=== PATIENT | male | born 1990 | race Caucasian/White ===

== ENCOUNTER → 2023-06-03 | Emergency (ER) | payer SELFPAY ==
[~2023-06-03] MED LIST: LORazepam 2 MG/ML VIAL ONE; NA CHLORIDE 0.9% 1,000 ML ONE; NA CHLORIDE 0.9% 1,000 ML with MULTIVITAMINS INJ 10 ML, THIAMINE HCL 100 MG, FOLIC ACID... IV SCH; THIAMINE 200 MG/2 ML INJ ONE; chlordiazePOXIDE HCl 25 MG CAP ONE
[2023-06-03 12:00] LABS: Specific Gravity 1.007 (1.005-1.030); Urine Bilirubin NEGATIVE (Negative); Urine Blood Negative (Negative); Urine Clarity Clear (Clear); Urine Color Colorless (Yellow); Urine Glucose NEGATIVE (Negative); Urine Protein NEGATIVE (Negative); Urine Urobilinogen Normal (Normal)
[2023-06-03 12:15] LABS: Barbiturates NEGATIVE (NEGATIVE); Benzodiazepines NEGATIVE (NEGATIVE); Cocaine NEGATIVE (NEGATIVE); METHAMPHETAM NEGATIVE (NEGATIVE); Methadone NEGATIVE (NEGATIVE); Opiates NEGATIVE (NEGATIVE); Phencyclidine NEGATIVE (NEGATIVE); THC Cannibis NEGATIVE (NEGATIVE)
[2023-06-03 12:22] LABS: Absolute Lymphocytes (CBC) 2.2 K/uL (0.7-4.9); Hematocrit 42.3 % (39.6-49.0); Lymphocytes % 32.7 % (15.3-44.8); MCV 87.8 fL (80-100); MPV 6.3 fL (7.6-11.3); Platelets 472 thou/uL (152-406); RBC Red Blood Cell Count 4.82 M/uL (4.33-5.43)
[2023-06-03 12:28] LABS: Protime INR 0.89
[2023-06-03 12:47] LABS: ALT/SGPT 50 U/L (16-61); AST/SGOT 52 U/L (15-37); Albumin 4.3 g/dL (3.4-5.0); Alkaline Phosphatase 57 U/L (45-117); BUN Blood Urea Nitrogen 6 mg/dL (7-18); Bicarbonate 23 mEq/L (21-32); Bilirubin Direct 0.3 mg/dL (0-0.2); Bilirubin Indirect, Calculated 0.6 mg/dL (0.2-0.8); Bilirubin Total 0.9 mg/dL (0.2-1.0); Glomerular Filtration Rate 112 ml/min (=/>90); Glucose Level 97 mg/dL (74-106); Potassium 3.6 mEq/L (3.5-5.1); Protein, Total 7.9 g/dL (6.4-8.2); Sodium Level 131 mEq/L (136-145)
--- NOTE | 2023-06-03 13:43 | EDPHYS ---
Physician Documentation [facility] Name: Arash Jasso Age: 33 yrs Sex: Male : 1990 Arrival Date: 06/03/2023 Time: 11:03 Bed 13 Private MD: ED Physician Alvin Millan HPI: 06/03 13:00 This 33 yrs old Male presents to ER via Ambulatory with complaints of Alcohol jessica Withdrawals. 13:00 The patient presents to the emergency department after a known overdose, a result of [facility] recreational substance abuse. Context: Method: the patient has a confirmed or suspected ingestion, of alcohol. Associated signs and symptoms: Pertinent positives: anxiety. Severity of symptoms: At their worst the symptoms were mild moderate in the emergency department the symptoms are unchanged. etoh withdrawal. Onset: The symptoms/episode began/occurred yesterday. The patient has experienced similar episodes in the past, multiple times. Historical: - Allergies: 11:14 No Known Allergies; iw - Home Meds: 11:14 gabapentin oral [Active]; iw - PMHx: 11:14 None; iw - PSHx: 11:14 right femur; iw - Immunization history:: Adult Immunizations up to date. - Social history:: Smoking status: Reported history of juuling and/or vaping. Patient uses alcohol, on a daily basis. patient/guardian reports recent binge of alcohol consumption. - Family history:: not pertinent. ROS: 13:00 Constitutional: Negative for fever, chills, and weight loss, Eyes: Negative for injury, jessica pain, redness, and discharge, ENT: Negative for injury, pain, and discharge, Neck: Negative for injury, pain, and swelling, Respiratory: Negative for shortness of breath, cough, wheezing, and pleuritic chest pain, Abdomen/GI: Negative for abdominal pain, nausea, vomiting, diarrhea, and constipation, Back: Negative for injury and pain, : Negative for injury, bleeding, discharge, and swelling, MS/Extremity: Negative for injury and deformity, Skin: Negative for injury, rash, and discoloration, Psych: Negative for depression, anxiety, suicide ideation, homicidal ideation, and hallucinations, Allergy/Immunology: Negative for hives, rash, and allergies, Endocrine: Negative for neck swelling, polydipsia, polyuria, polyphagia, and marked weight changes, Hematologic/Lymphatic: Negative for swollen nodes, abnormal bleeding, and unusual bruising, 13:00 Cardiovascular: Positive for palpitations, 13:00 Psych: Positive for anxiety, Exam: 13:04 Constitutional: This is a well developed, well nourished patient who is awake, alert, jessica and in no acute distress. Head/Face: Normocephalic, atraumatic. Eyes: Pupils equal round and reactive to light, extra-ocular motions intact. Lids and lashes normal. Conjunctiva and sclera are non-icteric and not injected. Cornea within normal limits. Periorbital areas with no swelling, redness, or edema. ENT: Nares patent. No nasal discharge, no septal abnormalities noted. Tympanic membranes are normal and external auditory canals are clear. Oropharynx with no redness, swelling, or masses, exudates, or evidence of obstruction, uvula midline. Mucous membranes moist. Neck: Trachea midline, no thyromegaly or masses palpated, and no cervical lymphadenopathy. Supple, full range of motion without nuchal rigidity, or vertebral point tenderness. No Meningismus. Chest/axilla: Normal chest wall appearance and motion. Nontender with no deformity. No lesions are appreciated. Respiratory: Lungs have equal breath sounds bilaterally, clear to auscultation and percussion. No rales, rhonchi or wheezes noted. No increased work of breathing, no retractions or nasal flaring. Abdomen/GI: Soft, non-tender, with normal bowel sounds. No distension or tympany. No guarding or rebound. No evidence of tenderness throughout. Back: No spinal tenderness. No costovertebral tenderness. Full range of motion. Male : Normal genitalia with no discharge or lesions. Skin: Warm, dry with normal turgor. Normal color with no rashes, no lesions, and no evidence of cellulitis. MS/ Extremity: Pulses equal, no cyanosis. Neurovascular intact. Full, normal range of motion. Neuro: Awake and alert, GCS 15, oriented to person, place, time, and situation. Cranial nerves II-XII grossly intact. Motor strength 5/5 in all extremities. Sensory grossly intact. Cerebellar exam normal. Normal gait. Psych: Awake, alert, with orientation to person, place and time. Behavior, mood, and affect are within normal limits. 13:04 Cardiovascular: Rate: tachycardic, actual rate is 108 bpm, Rhythm: regular, Pulses: Pulses are 4+ in bilateral radial, brachial, femoral, popliteal, posterior tibial and and dorsalis pedis arteries.. Heart sounds: normal, Edema: is not appreciated, JVD: is not appreciated, 13:29 ECG was reviewed by the Attending Physician. [facility] Vital Signs: 11:12 BP 140 / 97; Pulse 108; Resp 19; Temp 98.1; Pulse Ox 97% on R/A; Weight 68.04 kg; iw Height 5 ft. 9 in. ; 13:30 BP 114 / 77; Pulse 99; Resp 18; Temp 98(O); Pulse Ox 99% ; rs5 14:01 BP 118 / 79; Pulse 88; Resp 18; Pulse Ox 99% on R/A; rs5 11:12 Body Mass Index 22.15 (68.04 kg, 175.26 cm) iw MDM: 11:07 Patient medically screened. jessica 13:06 Differential diagnosis: polypharmacy. Differential Diagnosis altered mental status. [facility] Data reviewed: vital signs, nurses notes, lab test result(s), EKG. Consideration of Admission/Observation Escalation of care including admission/observation considered. I considered the following discharge prescriptions or medication management in the emergency department Medications were administered in the Emergency Department. See MAR. Independent interpretation of the following test(s) in the Emergency Department EKG: See my EKG interpretation above. Test considered but Not performed: CT: no ct head. Historians other than the Patient: pt well informed. Care significantly affected by the following chronic conditions:. Counseling: I had a detailed discussion with the patient and/or guardian regarding the historical points, exam findings, and any diagnostic results supporting the discharge/admit diagnosis, the presence of at least one elevated blood pressure reading (>120/80) during this emergency department visit, lab results, radiology results, the need for outpatient follow up, for definitive care, a family practitioner, a psychiatrist. 06/03 11:08 Order name: Acetaminophen; Complete Time: 13:41 [facility] 06/03 11:08 Order name: Basic Metabolic Panel; Complete Time: 13:41 [facility] 06/03 11:08 Order name: CBC with Diff; Complete Time: 13:41 [facility] 06/03 11:08 Order name: ETOH Level; Complete Time: 13:41 [facility] 06/03 11:08 Order name: Hepatic Function; Complete Time: 13:41 [facility] 06/03 11:08 Order name: PT-INR; Complete Time: 13:41 [facility] 06/03 11:08 Order name: Ptt, Activated; Complete Time: : [facility] 06/03 11:08 Order name: Salicylate; Complete Time: 13:41 [facility] 06/03 11:08 Order name: Urinalysis w/ reflexes; Complete Time: 13:41 [facility] 06/03 11:08 Order name: Urine Drug Screen; Complete Time: 13: [facility] 06/03 11:08 Order name: EKG; Complete Time: 11: [facility] 06/03 11:08 Order name: EKG - Nurse/Tech; Complete Time: 13:29 [facility] 06/03 11:08 Order name: IV Saline Lock; Complete Time: 12:40 [facility] 06/03 11:08 Order name: Labs collected and sent; Complete Time: 12:40 [facility] 06/03 11:08 Order name: Suicide Screening ([place]); Complete Time: 12:40 [facility] EC:29 Rate is 86 beats/min. Rhythm is regular. QRS [place] is Normal. [place] interval is normal. QRS jessica interval is normal. QT interval is normal. No Q waves. T waves are Normal. No ST changes noted. Clinical impression: Normal ECG and No evidence of ischemia. Interpreted by me. Reviewed by me. Administered Medications: 12:40 Drug: NS 0.9% IV 1000 ml IV at 1 bolus Per protocol; 1000 mL bolus Route: IV; Rate: 1 rs5 bolus; Site: right antecubital; 13:01 Follow up: Response: No adverse reaction rs5 12:40 Drug: Thiamine IV 100 mg IV at bolus once Route: IV; Rate: bolus; Site: right rs5 antecubital; 13:01 Follow up: Response: No adverse reaction rs5 12:45 Drug: Banana Bag - (Multivitamin IV 1 amp, NS 0.9% IV 1000 ml, Thiamine IV 100 mg, rs5 foLIC Acid IVPB 1 mg) IV at 500 ml/hr once Route: IV; Rate: 500 ml/hr; Site: right antecubital; 13:01 Follow up: Response: No adverse reaction rs5 12:45 Drug: Librium - chlordiazePOXIDE PO 50 mg PO once Route: PO; rs5 13:01 Follow up: Response: No adverse reaction rs5 12:45 Drug: Ativan IVP 1 mg IVP once Route: IVP; Site: right antecubital; rs5 13:01 Follow up: Response: No adverse reaction rs5 Disposition Summary: 06/03/23 13:42 Discharge Ordered Notes: Location: Home [facility] Problem: new jessica Symptoms: have improved jessica Condition: Stable jessica Diagnosis - Alcohol dependence jessica - Alcohol dependence with withdrawal, uncomplicated jessica - Alcohol abuse with intoxication jessica Followup: jessica - With: Private Physician - When: 2 - 3 days - Reason: Recheck today's complaints, Continuance of care, Re-evaluation by your physician Followup: jessica - With: Suhas Arellano MD - When: 2 - 3 days - Reason: Recheck today's complaints, Re-evaluation by your physician Discharge Instructions: - Discharge Summary Sheet [facility] - Finding Treatment for Addiction jessica - Alcohol Intoxication jessica - Alcohol Use Disorder jessica - Alcohol Intoxication, Thac-ox-Tfgs jessica - Alcohol Withdrawal Syndrome, [id number] [facility] - Alcohol Abuse and Dependence Information, Adult [facility] Forms: - Medication Reconciliation Form [facility] - Thank You Letter [facility] - Antibiotic Education [facility] - Prescription Opioid Use [facility] - Patient Portal Instructions [facility] - Leadership Thank You Letter [facility] Prescriptions: - ondansetron 4 mg Oral Tablet,disintegrating - take 1 tablet ORAL route every 6-8 hours for 5 days; 20 tablet; Refills: 0, jessica Product Selection Permitted Signatures: Dispatcher [employer] Alvin Platt MD MD cha Williams, Irene, RN RN iw Abiel Rubio RN RN rs5
--- NOTE | 2023-06-03 13:43 | ER ---
Nurse's Notes [facility] Name: Arash Jasso Age: 33 yrs Sex: Male : 1990 Arrival Date: 06/03/2023 Time: 11:03 Bed 13 Private MD: Diagnosis: Alcohol dependence;Alcohol dependence with withdrawal, uncomplicated;Alcohol abuse with intoxication Presentation: 06/03 11:12 Chief complaint: Patient states: last drink was at 7 am today, normally drinks 24 beers iw a day, is trying to taper himself off but was unsuccessful , he's had seizures before. Coronavirus screen: At this time, the client does not indicate any symptoms associated with coronavirus-19. Ebola Screen: Patient negative for fever greater than or equal to 101.5 degrees Fahrenheit, and additional compatible Ebola Virus Disease symptoms Patient denies exposure to infectious person. Patient denies travel to an Ebola-affected area in the 21 days before illness onset. No symptoms or risks identified at this time. Initial Sepsis Screen: Does the patient meet any 2 criteria? No. Patient's initial sepsis screen is negative. Does the patient have a suspected source of infection? No. Patient's initial sepsis screen is negative. Risk Assessment: Do you want to hurt yourself or someone else? Patient reports no desire to harm self or others. Onset of symptoms was June 03, 2023. 11:12 Method Of Arrival: Ambulatory iw 11:12 Acuity: DALE 3 iw Historical: - Allergies: 11:14 No Known Allergies; iw - Home Meds: 11:14 gabapentin oral [Active]; iw - PMHx: 11:14 None; iw - PSHx: 11:14 right femur; iw - Immunization history:: Adult Immunizations up to date. - Social history:: Smoking status: Reported history of juuling and/or vaping. Patient uses alcohol, on a daily basis. patient/guardian reports recent binge of alcohol consumption. - Family history:: not pertinent. Screenin:20 [facility] ED Fall Risk Assessment (Adult) History of falling in the last 3 months, rs5 including since admission No falls in past 3 months (0 pts) Confusion or Disorientation No (0 pts) Intoxicated or Sedated No (0 pts) Impaired Gait No (0 pts) Mobility Assist Device Used No (0 pt) Altered Elimination No (0 pt) Score/Fall Risk Level 0 - 2 = Low Risk Oriented to surroundings, Maintained a safe environment. 11:20 Abuse screen: Denies threats or abuse. Nutritional screening: No deficits noted. rs5 Tuberculosis screening: No symptoms or risk factors identified. Assessment: 12:35 Reassessment: pt arrived to room. rs5 12:35 General: Appears in no apparent distress. uncomfortable, Behavior is cooperative, rs5 anxious. Pain: Denies pain. Neuro: Level of Consciousness is awake, alert, obeys commands, Oriented to person, place, time, situation, Flap Curer are equal bilaterally Moves all extremities. Speech is normal, Reports states "I feel anxious and jittery" provider notified. 12:35 Cardiovascular: Patient's skin is warm and dry. Rhythm is regular. Respiratory: Airway rs5 is patent Respiratory effort is even, unlabored, Respiratory pattern is regular, symmetrical. GI: Abdomen is round non-distended, Abd is soft and non tender X 4 quads. : No signs and/or symptoms were reported regarding the genitourinary system. EENT: No signs and/or symptoms were reported regarding the EENT system. Derm: Skin is intact, Skin is pink, warm \\T\\ dry. Musculoskeletal: Range of motion: intact in all extremities. 13:47 Reassessment: Patient and/or family updated on plan of care and expected duration. Pain rs5 level reassessed. Patient is alert, oriented x 3, equal unlabored respirations, skin warm/dry/pink. Patient states feeling better. Patient states symptoms have improved. 14:15 Reassessment: Waiting for banana bag to finish before discharge per MD orders . rs5 Vital Signs: 11:12 BP 140 / 97; Pulse 108; Resp 19; Temp 98.1; Pulse Ox 97% on R/A; Weight 68.04 kg; iw Height 5 ft. 9 in. ; 13:30 BP 114 / 77; Pulse 99; Resp 18; Temp 98(O); Pulse Ox 99% ; rs5 14:01 BP 118 / 79; Pulse 88; Resp 18; Pulse Ox 99% on R/A; rs5 11:12 Body Mass Index 22.15 (68.04 kg, 175.26 cm) iw ED Course: 11:06 Patient arrived in ED. mr 11:07 Alvin Millan MD is Attending Physician. jessica 11:14 Triage completed. iw 11:15 Arm band placed on. iw 11:20 Patient has correct armband on for positive identification. Bed in low position. Call rs5 light in reach. Side rails up X2. 11:20 No provider procedures requiring assistance completed. rs5 12:16 Inserted saline lock: 22 gauge in right forearm, using aseptic technique. Blood iw collected. 12:31 Abiel Rubio, MAGO is Primary Nurse. rs5 13:42 Suhas Arellano MD is Referral Physician. jessica 14:30 IV discontinued, intact, bleeding controlled, No redness/swelling at site. Pressure rs5 dressing applied. Administered Medications: 12:40 Drug: NS 0.9% IV 1000 ml IV at 1 bolus Per protocol; 1000 mL bolus Route: IV; Rate: 1 rs5 bolus; Site: right antecubital; 13:01 Follow up: Response: No adverse reaction rs5 12:40 Drug: Thiamine IV 100 mg IV at bolus once Route: IV; Rate: bolus; Site: right rs5 antecubital; 13:01 Follow up: Response: No adverse reaction rs5 12:45 Drug: Banana Bag - (Multivitamin IV 1 amp, NS 0.9% IV 1000 ml, Thiamine IV 100 mg, rs5 foLIC Acid IVPB 1 mg) IV at 500 ml/hr once Route: IV; Rate: 500 ml/hr; Site: right antecubital; 13:01 Follow up: Response: No adverse reaction rs5 12:45 Drug: Librium - chlordiazePOXIDE PO 50 mg PO once Route: PO; rs5 13:01 Follow up: Response: No adverse reaction rs5 12:45 Drug: Ativan IVP 1 mg IVP once Route: IVP; Site: right antecubital; rs5 13:01 Follow up: Response: No adverse reaction rs5 Medication: 14:00 VIS not applicable for this client. rs5 Outcome: 13:42 Discharge ordered by . jessica 14:30 Discharged to home ambulatory, rs5 14:30 Condition: stable 14:30 Discharge instructions given to patient, Instructed on discharge instructions, follow up and referral plans. medication usage, Demonstrated understanding of instructions, follow-up care, medications, 14:36 Patient left the ED. rs5 Signatures: Alvin Millan MD MD cha Rivera, Mary, Reg Reg mr Sandy Woo, RN RN iw Abiel Rubio, RN RN rs5
[2023-06-03 14:45] VITALS: BP 114/77; TEMP 98; O2SAT 99
--- NOTE | 2023-06-04 15:02 | EKG ---
Test Date: 2023-06-03 Test Time: 13:20:26 [employer] Supervisor: REBA MEASUREMENT RESULTS: Intervals: Rate: 86 CO: 146 QRSD: 100 QT: 382 QTc: 457 [place]: P: 68 CO: 146 QRS: 61 T: 54 INTERPRETIVE STATEMENTS: Normal sinus rhythm Normal ECG No previous ECG available for comparison Electronically Signed On 06-04-23 15:00:19 TIN ROOFER by Francisco Javier Méndez
== END ==
LOC: ER 11:03
DX: F10.239 Alcohol dependence with withdrawal, unspecified (principal); F10.229 Alcohol dependence with intoxication, unspecified
CPT/HCPCS: 36415; 80048; 80076; 80143; 80179; 80307; 81003; 82077; 85025; 85610; 85730; 93005; 96374; 96375; 99284; J3411; J7030

== ENCOUNTER 2023-12-19 15:12 | Emergency (ER) | payer SELFPAY ==
--- NOTE | 2023-12-19 16:42 | ER ---
Nurse's Notes [facility] Name: Arash Jasso Age: 33 yrs Sex: Male : 1990 Arrival Date: 12/19/2023 Time: 15:12 Bed 5 Private MD: Diagnosis: Alcohol withdrawal Presentation: 12/18 15:49 Chief complaint: Patient states: he typically drinks 15 beers/day and his last drink ap3 was this morning. patient is reporting nausea and feeling "shaky". patient reports having 2 beers this morning. Coronavirus screen: At this time, the client does not indicate any symptoms associated with coronavirus-19. Ebola Screen: No symptoms or risks identified at this time. Initial Sepsis Screen: Does the patient meet any 2 criteria? No. Patient's initial sepsis screen is negative. Does the patient have a suspected source of infection? No. Patient's initial sepsis screen is negative. Risk Assessment: Do you want to hurt yourself or someone else? Patient reports no desire to harm self or others. Onset of symptoms is unknown. 15:49 Method Of Arrival: Ambulatory ap3 15:49 Acuity: DALE 2 ap3 Triage Assessment: 15:52 General: Appears uncomfortable, Behavior is cooperative. Pain: Denies pain. Neuro: ap3 Level of Consciousness is awake, alert, obeys commands, Oriented to person, place, time, situation, Appropriate for age. Cardiovascular: Patient's skin is warm and dry. Respiratory: Airway is patent Respiratory effort is even, unlabored, Respiratory pattern is regular, symmetrical. GI: Reports nausea, vomiting. Historical: - Allergies: 15:51 No Known Allergies; ap3 - PMHx: 16:06 Alcoholism; ld1 - PSHx: 15:51 Right femur; ap3 - Immunization history:: Client reports receiving the 2nd dose of the Covid vaccine. - Infectious Disease History:: Denies. - Social history:: Smoking status: Reported history of juuling and/or vaping. Patient uses alcohol, on a daily basis. Screenin:52 Abuse screen: Denies threats or abuse. Nutritional screening: No deficits noted. ap3 Tuberculosis screening: No symptoms or risk factors identified. 16:04 Clinical [place] Withdrawal Assessment for Alcohol, revised (CIWA-Ar): ld1 Nausea/Vomitin - No nausea or vomiting Headache: 0 - Not present Paroxysmal Sweats: 1 - Barely perceptible sweating, palms moist Anxiety: 4 - Moderately anxious, guarded Agitation: 0 - Normal actiivty Tremor: 4 - Moderate when client's hands extended Auditory Disturbances: 0 - Not present Visual Disturbances: 0 - Not present Tactile Disturbances: 0 - None Orientation and Clouding of Sensorium: 0 - Oriented and can do serial additions Total Score: < 10 Very mild withdrawal. [facility] ED Fall Risk Assessment (Adult) History of falling in the last 3 months, including since admission No falls in past 3 months (0 pts) Confusion or Disorientation No (0 pts) Intoxicated or Sedated No (0 pts) Impaired Gait No (0 pts) Mobility Assist Device Used No (0 pt) Altered Elimination No (0 pt) Score/Fall Risk Level 0 - 2 = Low Risk Oriented to surroundings, Maintained a safe environment, Educated pt \\T\\ family on fall prevention, incl call for assistance when getting out of bed, Assessed \\T\\ reinforced patient's understanding of fall precautions, Provided non-skid footwear, Hourly rounding (assess needs \\T\\ fall precautionary measures) done, Used ambulatory aids as needed (educated on \\T\\ assisted with), Used gait belt as appropriate. Assessment: 16:05 General: Appears in no apparent distress. comfortable, Behavior is cooperative, ld1 appropriate for age, anxious. Pain: Denies pain. Neuro: Level of Consciousness is awake, alert, obeys commands, Oriented to person, place, time, situation, Appropriate for age. Cardiovascular: Capillary refill < 3 seconds Patient's skin is warm and dry. Rhythm is sinus rhythm. Respiratory: Airway is patent Respiratory effort is even, unlabored. GI: Abdomen is flat, non-distended. : No signs and/or symptoms were reported regarding the genitourinary system. EENT: No signs and/or symptoms were reported regarding the EENT system. Derm: Reports night sweats. Musculoskeletal: No signs and/or symptoms reported regarding the musculoskeletal system. 16:50 Reassessment: D/C pending medication administration. mb9 17:50 Reassessment: Patient and/or family updated on plan of care and expected duration. Pain mb9 level reassessed. Patient is alert, oriented x 3, equal unlabored respirations, skin warm/dry/pink. Patient states feeling better. Patient states symptoms have improved. Vital Signs: 15:49 BP 120 / 93; Pulse 97; Resp 19; Temp 98.2(O); Pulse Ox 96% on R/A; Weight 68.04 kg; ap3 Height 5 ft. 8 in. ; 16:06 Pulse 86; Resp 22; Pulse Ox 95% on R/A; Pain 0/10; ld1 16:08 BP 118 / 89; ld1 17:50 BP 131 / 92; Pulse 95; Resp 18; Pulse Ox 100% on R/A; mb9 15:49 Body Mass Index 22.81 (68.04 kg, 172.72 cm) ap3 16:06 Pain Scale: Adult ld1 ED Course: 15:16 Patient arrived in ED. im 15:32 Shruthi Crouch MD is Attending Physician. sp3 15:51 Triage completed. ap3 15:53 Arm band placed on right wrist. ap3 15:57 Patient has correct armband on for positive identification. Placed in gown. Bed in low ap3 position. Call light in reach. Side rails up X 1. Client placed on continuous cardiac and pulse oximetry monitoring. NIBP monitoring applied. media monitor on. Pulse ox on. NIBP on. 16:00 Missed attempt(s): 20 gauge in right antecubital area. Bleeding controlled, band aid mb9 applied, catheter tip intact. 16:00 EKG done, by ED staff, reviewed by Shruthi Crouch MD. mb9 16:05 Pat Vera, RN is Primary Nurse. ld1 16:06 Provided Education on: Drinking cessation . Door closed. Noise minimized. Warm blanket ld1 given. 16:06 Initial lab(s) drawn, by pa, sent to lab. Inserted saline lock: 18 gauge in left mb9 forearm, using aseptic technique. Blood collected. Flushed with 10 mL NS. 16:06 No provider procedures requiring assistance completed. ld1 17:51 IV discontinued, intact, bleeding controlled, No redness/swelling at site. Pressure mb9 dressing applied. Administered Medications: 16:50 Drug: Ativan IVP 2 mg IVP once Route: IVP; Site: left forearm; mb9 17:50 Follow up: Response: No adverse reaction mb9 16:50 Drug: NS 0.9% IV 500 ml IV at bolus once Route: IV; Rate: bolus; Site: left forearm; mb9 17:51 Follow up: Response: No adverse reaction; IV Status: Completed infusion mb9 16:50 Drug: cloNIDine PO 0.1 mg PO once Route: PO; mb9 17:51 Follow up: Response: No adverse reaction mb9 Medication: 16:06 VIS not applicable for this client. ld1 Outcome: 16:42 Discharge ordered by . sp3 17:51 Discharged to home ambulatory, mb9 17:51 Condition: stable 17:51 Discharge instructions given to patient, Instructed on discharge instructions, follow up and referral plans. Demonstrated understanding of instructions, follow-up care, medications, Prescriptions given X 1, 17:51 Patient left the ED. mb9 Signatures: Amy Arceo RN RN andrea3 Pat Vera RN RN ld1 Shruthi Crouch MD MD sp3 Soco Rick RN RN mb9 Micheline Zamora
--- NOTE | 2023-12-19 16:42 | EDPHYS ---
Physician Documentation [facility] Name: Arash Jasso Age: 33 yrs Sex: Male : 1990 Arrival Date: 12/19/2023 Time: 15:12 Bed 5 Private MD: ED Physician Shruthi Crouch HPI: 12/18 16:38 This 33 yrs old Male presents to ER via Ambulatory with complaints of Alcohol sp3 Withdrawal. 16:38 33-year-old male with history of alcoholism presents with alcohol withdrawal symptoms. sp3 Last drink was this morning. He denies any other drug use or any other symptoms. He denies headache, seizures, chest pain, shortness of breath, abdominal pain, vomiting, diarrhea. He does state he has the shakes. Has been to rehab twice and states that he wishes to go back at some point soon.. Historical: - Allergies: 15:51 No Known Allergies; ap3 - PMHx: 16:06 Alcoholism; ld1 - PSHx: 15:51 Right femur; ap3 - Immunization history:: Client reports receiving the 2nd dose of the Covid vaccine. - Infectious Disease History:: Denies. - Social history:: Smoking status: Reported history of juuling and/or vaping. Patient uses alcohol, on a daily basis. ROS: 16:39 Constitutional: Negative for fever, chills, and weight loss, Eyes: Negative for injury, sp3 pain, redness, and discharge, Neck: Negative for injury, pain, and swelling, Cardiovascular: Negative for chest pain, palpitations, and edema, Respiratory: Negative for shortness of breath, cough, wheezing, and pleuritic chest pain, Abdomen/GI: Negative for abdominal pain, nausea, vomiting, diarrhea, and constipation, Back: Negative for injury and pain, MS/Extremity: Negative for injury and deformity, Skin: Negative for injury, rash, and discoloration, Allergy/Immunology: Negative for hives, rash, and allergies, Endocrine: Negative for neck swelling, polydipsia, polyuria, polyphagia, and marked weight changes, Hematologic/Lymphatic: Negative for swollen nodes, abnormal bleeding, and unusual bruising, 16:39 All other systems are negative, Exam: 16:40 ECG was reviewed by the Attending Physician. EKG demonstrates normal sinus rhythm at 93 sp3 bpm with normal intervals, normal QRS, normal axis, normal axis ST segments without evidence of acute ischemia. 16:40 Constitutional: This is a well developed, well nourished patient who is awake, alert, sp3 and in no acute distress. Head/Face: Normocephalic, atraumatic. Eyes: Pupils equal round and reactive to light, extra-ocular motions intact. Lids and lashes normal. Conjunctiva and sclera are non-icteric and not injected. Cornea within normal limits. Periorbital areas with no swelling, redness, or edema. ENT: Nares patent. No nasal discharge, no septal abnormalities noted. External auditory canals are clear. Oropharynx with no redness, swelling, or masses, exudates, or evidence of obstruction, uvula midline. Mucous membranes moist. Neck: Trachea midline, no thyromegaly or masses palpated, and no cervical lymphadenopathy. Supple, full range of motion without nuchal rigidity, or vertebral point tenderness. No Meningismus. Chest/axilla: Normal chest wall appearance and motion. Nontender with no deformity. No lesions are appreciated. Cardiovascular: Regular rate and rhythm with a normal S1 and S2. No gallops, murmurs, or rubs. Normal PMI, no JVD. No pulse deficits. Respiratory: Lungs have equal breath sounds bilaterally, clear to auscultation and percussion. No rales, rhonchi or wheezes noted. No increased work of breathing, no retractions or nasal flaring. Abdomen/GI: Soft, non-tender, with normal bowel sounds. No distension or tympany. No guarding or rebound. No evidence of tenderness throughout. Back: No spinal tenderness. No costovertebral tenderness. Full range of motion. Skin: Warm, dry with normal turgor. Normal color with no rashes, no lesions, and no evidence of cellulitis. MS/ Extremity: Pulses equal, no cyanosis. Neurovascular intact. Full, normal range of motion. Neuro: Awake and alert, GCS 15, oriented to person, place, time, and situation. Cranial nerves II-XII grossly intact. Motor strength 5/5 in all extremities. Sensory grossly intact. Cerebellar exam normal. Normal gait. Psych: Awake, alert, with orientation to person, place and time. Behavior, mood, and affect are within normal limits. Vital Signs: 15:49 BP 120 / 93; Pulse 97; Resp 19; Temp 98.2(O); Pulse Ox 96% on R/A; Weight 68.04 kg; ap3 Height 5 ft. 8 in. ; 16:06 Pulse 86; Resp 22; Pulse Ox 95% on R/A; Pain 0/10; ld1 16:08 BP 118 / 89; ld1 17:50 BP 131 / 92; Pulse 95; Resp 18; Pulse Ox 100% on R/A; mb9 15:49 Body Mass Index 22.81 (68.04 kg, 172.72 cm) ap3 16:06 Pain Scale: Adult ld1 MDM: 15:58 Patient medically screened. sp3 16:41 Data reviewed: vital signs, nurses notes, EKG. ED course: No overt signs of alcohol sp3 withdrawal noted except mild shakes. Will give Ativan 2 mg IV and clonidine 0.1 mg p.o. Discharged on clonidine and follow-up with rehab and/or PCP as needed.. Administered Medications: 16:50 Drug: Ativan IVP 2 mg IVP once Route: IVP; Site: left forearm; mb9 17:50 Follow up: Response: No adverse reaction mb9 16:50 Drug: NS 0.9% IV 500 ml IV at bolus once Route: IV; Rate: bolus; Site: left forearm; mb9 17:51 Follow up: Response: No adverse reaction; IV Status: Completed infusion mb9 16:50 Drug: cloNIDine PO 0.1 mg PO once Route: PO; mb9 17:51 Follow up: Response: No adverse reaction mb9 Disposition Summary: 12/19/23 16:42 Discharge Ordered Notes: Location: Home sp3 Condition: Stable sp3 Diagnosis - Alcohol withdrawal sp3 Followup: sp3 - With: Private Physician - When: Upon discharge from the Emergency Department - Reason: Continuance of care Discharge Instructions: - Discharge Summary Sheet sp3 - Alcohol Withdrawal Syndrome sp3 Forms: - Medication Reconciliation Form sp3 - Antibiotic Education sp3 - Prescription Opioid Use sp3 - Patient Portal Instructions sp3 - Leadership Thank You Letter sp3 Prescriptions: - clonidine HCl 0.2 mg Oral tablet - take 1 tablet ORAL route every 4 hours for 24 hours as needed for alcohol sp3 withdrawal; 10 tablet; Refills: 0, Product Selection Permitted Signatures: Amy Arceo RN RN ap3 Pat Vera RN RN ld1 Shruthi Crouch MD MD sp3 Prabhjot, Soco Roldan, RN RN mb9
[2023-12-19] MEDS ORDERED: cloNIDine HCL 0.1 MG TAB ONE (16:45)
[2023-12-19] MEDS ORDERED: LORazepam 2 MG/ML VIAL ONE (16:45)
[2023-12-19] MEDS ORDERED: NA CHLORIDE 0.9% 500 ML ONE (16:45)
[2023-12-19 18:38] VITALS: TEMP 98.2
[2023-12-19 18:42] VITALS: BP 131/92; O2SAT 100
--- NOTE | 2023-12-21 12:41 | EKG ---
Test Date: 2023-12-19 Test Time: 16:01:57 Clutch Mechanic: Payam ROOT MEASUREMENT RESULTS: Intervals: Rate: 93 HI: 134 QRSD: 90 QT: 336 QTc: 417 [place]: P: 79 HI: 134 QRS: 84 T: 23 INTERPRETIVE STATEMENTS: Normal sinus rhythm Normal ECG Compared to ECG 06/03/2023 13:20:26 No significant changes Electronically Signed On 12-21-23 12:37:37 CDT by Huang Jay
== END 2023-12-19 17:51 | disposition home or self-care (01) ==
LOC: ER 15:12
DX: F10.239 Alcohol dependence with withdrawal, unspecified (principal)
CPT/HCPCS: 93005; 96361; 96374; 99285; J7040

== ENCOUNTER 2024-07-15 15:46 | Emergency (ER) | payer SELFPAY ==
[2024-07-15 16:42] LABS: Absolute Lymphocytes (CBC) 1.2 K/uL (0.7-4.9); Absolute Monocytes 0.3 K/uL (0.1-1.3); Absolute Neutrophil 5.7 K/uL (1.8-8.0); Basophils % 0.2 % (0-1.3); Hematocrit 44.5 % (39.6-49.0); Hemoglobin 15.3 g/dL (13.6-17.9); Lymphocytes % 16.8 % (15.3-44.8); MCH 30.7 pg (27.0-35.0); MCHC 34.4 g/dL (32.0-36.0); MCV 89.4 fL (80-100); MPV 6.5 fL (7.6-11.3); Monocytes % 4.8 % (3.3-12.3); Neutrophils % 78.2 % (41.7-73.7); Platelets 257 thou/uL (152-406); RBC Red Blood Cell Count 4.98 M/uL (4.33-5.43); Red Cell Distribution Width 13.3 % (12.1-15.2)
[2024-07-15] MEDS ORDERED: NA CHLORIDE 0.9% 1,000 ML ONE (16:43)
[2024-07-15] MEDS ORDERED: chlordiazePOXIDE HCl 25 MG CAP ONE (16:43)
[2024-07-15] MEDS ORDERED: LORazepam 2 MG/ML VIAL ONE (16:43)
[2024-07-15 16:56] LABS: Albumin 4.3 g/dL (3.4-5.0); Anion Gap 14.8 mEq/L (5.0-15.0); Globulin 4.2 g/dL (2.3-3.5); Potassium 3.8 mEq/L (3.5-5.1); Protein, Total 8.5 g/dL (6.4-8.2)
--- NOTE | 2024-07-15 17:57 | ER ---
Nurse's Notes [facility] Name: Arash Jasso Age: 34 yrs Sex: Male : 1990 Arrival Date: 07/15/2024 Time: 15:46 Bed 4 Private MD: Diagnosis: Alcohol withdrawal Presentation: 07/15 16:14 Chief complaint: Patient states: withdrawing from alcohol. Last drink was last night at cm10 midnight. Pt states that he has been drink 1 liter of vodka daily for the last week. Before last week he was drinking 8-9 beers per day. Pt reports headache. Coronavirus screen: Client denies travel out of the [place] in the last 14 days. Ebola Screen: Patient denies travel to an Ebola-affected area in the 21 days before illness onset. Initial Sepsis Screen: Does the patient meet any 2 criteria? HR > 90 bpm. Does the patient have a suspected source of infection? No. Patient's initial sepsis screen is negative. Risk Assessment: Do you want to hurt yourself or someone else? Patient reports no desire to harm self or others. Onset of symptoms was July 15, 2024. 16:14 Method Of Arrival: Ambulatory cm10 16:14 Acuity: DALE 3 cm10 Triage Assessment: 16:16 General: Appears uncomfortable, Behavior is cooperative. Neuro: No deficits noted. cm10 Level of Consciousness is awake, alert, obeys commands, Oriented to person, place, time, situation, Appropriate for age. Respiratory: No deficits noted. Airway is patent Respiratory effort is even, unlabored, Respiratory pattern is regular, symmetrical. Historical: - Allergies: 16:16 No Known Allergies; cm10 - PMHx: 16:16 Alcoholism; cm10 - PSHx: 16:16 Right femur; cm10 - Immunization history:: Adult Immunizations up to date. - Infectious Disease History:: Denies. - Social history:: Smoking status: Reported history of juuling and/or vaping. Screenin:01 [facility] ED Fall Risk Assessment (Adult) History of falling in the last 3 months, iw including since admission No falls in past 3 months (0 pts) Confusion or Disorientation No (0 pts) Intoxicated or Sedated No (0 pts) Impaired Gait Yes (1 pt) Mobility Assist Device Used No (0 pt) Altered Elimination No (0 pt) Score/Fall Risk Level 3 or more points = High Risk Oriented to surroundings, Maintained a safe environment. Abuse screen: Denies threats or abuse. Denies injuries from another. Nutritional screening: No deficits noted. Tuberculosis screening: No symptoms or risk factors identified. Assessment: 16:52 General: Appears uncomfortable, Behavior is agitated, anxious. Pain: Denies pain. iw Neuro: Level of Consciousness is awake, alert, obeys commands, Oriented to person, place, time, situation. Cardiovascular: Patient's skin is warm and dry. Respiratory: Respiratory effort is even, unlabored, Respiratory pattern is regular, symmetrical. GI: Abdomen is flat, non-distended. Derm: Skin is intact. Musculoskeletal: Range of motion: intact in all extremities. 17:46 Reassessment: Patient appears in no apparent distress at this time. Patient and/or iw family updated on plan of care and expected duration. Pain level reassessed. feeling better. Vital Signs: 16:14 BP 153 / 101; Pulse 109; Resp 19; Temp 97.3(IR); Pulse Ox 97% on R/A; Weight 70.31 kg; cm10 Height 5 ft. 7 in. ; Pain 6/10; 16:55 BP 118 / 86; Pulse 100; Resp 18; Pulse Ox 100% on R/A; iw 18:10 BP 114 / 82; Pulse 100; Resp 16; Pulse Ox 100% ; bp 16:14 Body Mass Index 24.28 (70.31 kg, 170.18 cm) cm10 16:14 Pain Scale: Adult cm10 ED Course: 15:49 Patient arrived in ED. sj2 16:02 Shruthi Crouch MD is Attending Physician. sp3 16:16 Triage completed. cm10 16:16 Arm band placed on right wrist. Patient placed in an exam room, on a stretcher. cm10 16:25 Andrea Oliveros, MAGO is Primary Nurse. bp 16:35 Initial lab(s) drawn, by me, sent to lab. Inserted saline lock: 20 gauge in right iw antecubital area, using aseptic technique. Blood collected. Flushed with 10 mL NS. 17:02 Patient has correct armband on for positive identification. Placed in gown. Bed in low iw position. Call light in reach. Provided Education on: . 18:20 No provider procedures requiring assistance completed. IV discontinued, intact, iw bleeding controlled, No redness/swelling at site. Pressure dressing applied. Administered Medications: 16:51 Drug: Ativan IVP 1 mg IVP once Route: IVP; Site: right antecubital; iw 18:21 Follow up: Response: Marked relief of symptoms iw 16:51 Drug: Librium - chlordiazePOXIDE PO 50 mg PO once Route: PO; iw 18:21 Follow up: Response: No adverse reaction; Anxiety decreased iw 16:52 Drug: NS 0.9% IV 1000 ml IV at 1 bolus Per protocol; to be given as a bolus over 60 iw minutes Route: IV; Rate: 1 bolus; Site: right antecubital; 18:21 Follow up: IV Status: Completed infusion iw 17:14 Drug: Ativan IVP 1 mg IVP once Route: IVP; Site: right antecubital; iw 18:21 Follow up: Response: No adverse reaction; Anxiety decreased iw Medication: 18:20 VIS not applicable for this client. iw Outcome: 17:56 Discharge ordered by MD. monroy 18:20 Discharged to home ambulatory, iw 18:20 Condition: good 18:20 Discharge instructions given to patient, Instructed on discharge instructions, follow up and referral plans. Demonstrated understanding of instructions, follow-up care, medications, Prescriptions given X 1, 18:21 Patient left the ED. iw Signatures: Sandy Woo, RN MAGO iw Andrea Oliveros RN RN Shruthi Dao MD MD sp3 Lauryn Robert RN RN cm10 Oskar Collier 2
--- NOTE | 2024-07-15 17:57 | EDPHYS ---
Physician Documentation [facility] Name: Arash Jasso Age: 34 yrs Sex: Male : 1990 Arrival Date: 07/15/2024 Time: 15:46 Bed 4 Private MD: ED Physician Shruthi Crouch HPI: 07/15 16:38 This 34 yrs old Male presents to ER via Ambulatory with complaints of Alcohol sp3 Withdrawal. 16:38 34-year-old male with history of alcoholism presents again for alcohol withdrawal. He sp3 was seen here in December by me and states that he is been in AA and sober for 90 days until approximately 10 days ago he relapsed. He drinks about 1 bottle of vodka per day. Last drink was yesterday evening. He presents with shakes and anxiety symptoms. He denies any seizures, headache, neck pain, chest pain, shortness of breath, abdominal pain, vomit, diarrhea or any other signs or symptoms on ROS at this time. He denies any other substance use.. Historical: - Allergies: 16:16 No Known Allergies; cm10 - PMHx: 16:16 Alcoholism; cm10 - PSHx: 16:16 Right femur; cm10 - Immunization history:: Adult Immunizations up to date. - Infectious Disease History:: Denies. - Social history:: Smoking status: Reported history of juuling and/or vaping. ROS: 16:39 Constitutional: Negative for fever, chills, and weight loss, Eyes: Negative for injury, sp3 pain, redness, and discharge, ENT: Negative for injury, pain, and discharge, Neck: Negative for injury, pain, and swelling, Respiratory: Negative for shortness of breath, cough, wheezing, and pleuritic chest pain, Abdomen/GI: Negative for abdominal pain, nausea, vomiting, diarrhea, and constipation, Back: Negative for injury and pain, MS/Extremity: Negative for injury and deformity, Skin: Negative for injury, rash, and discoloration, Psych: Negative for depression, anxiety, suicide ideation, homicidal ideation, and hallucinations, Allergy/Immunology: Negative for hives, rash, and allergies, Endocrine: Negative for neck swelling, polydipsia, polyuria, polyphagia, and marked weight changes, 16:39 All other systems are negative, Exam: 16:40 Constitutional: This is a well developed, well nourished patient who is awake, alert, sp3 and in no acute distress. Head/Face: Normocephalic, atraumatic. Eyes: Pupils equal round and reactive to light, extra-ocular motions intact. Lids and lashes normal. Conjunctiva and sclera are non-icteric and not injected. Cornea within normal limits. Periorbital areas with no swelling, redness, or edema. ENT: Nares patent. No nasal discharge, no septal abnormalities noted. External auditory canals are clear. Oropharynx with no redness, swelling, or masses, exudates, or evidence of obstruction, uvula midline. Mucous membranes moist. Neck: Trachea midline, no thyromegaly or masses palpated, and no cervical lymphadenopathy. Supple, full range of motion without nuchal rigidity, or vertebral point tenderness. No Meningismus. Chest/axilla: Normal chest wall appearance and motion. Nontender with no deformity. No lesions are appreciated. Respiratory: Lungs have equal breath sounds bilaterally, clear to auscultation and percussion. No rales, rhonchi or wheezes noted. No increased work of breathing, no retractions or nasal flaring. Abdomen/GI: Soft, non-tender, with normal bowel sounds. No distension or tympany. No guarding or rebound. No evidence of tenderness throughout. Back: No spinal tenderness. No costovertebral tenderness. Full range of motion. Skin: Warm, dry with normal turgor. Normal color with no rashes, no lesions, and no evidence of cellulitis. MS/ Extremity: Pulses equal, no cyanosis. Neurovascular intact. Full, normal range of motion. Psych: Awake, alert, with orientation to person, place and time. Behavior, mood, and affect are within normal limits. 16:40 Cardiovascular: Rate: tachycardic, 16:40 Neuro: Patient mildly tachycardic. Shaking as well. No focal deficits noted. No seizure activity., Vital Signs: 16:14 BP 153 / 101; Pulse 109; Resp 19; Temp 97.3(IR); Pulse Ox 97% on R/A; Weight 70.31 kg; cm10 Height 5 ft. 7 in. ; Pain 6/10; 16:55 BP 118 / 86; Pulse 100; Resp 18; Pulse Ox 100% on R/A; iw 18:10 BP 114 / 82; Pulse 100; Resp 16; Pulse Ox 100% ; bp 16:14 Body Mass Index 24.28 (70.31 kg, 170.18 cm) cm10 16:14 Pain Scale: Adult cm10 MDM: 16:19 Medical Screening Exam initiated sp3 16:41 Data reviewed: vital signs, nurses notes, old medical records, lab test result(s). ED sp3 course: 34-year-old male with alcoholism with alcohol withdrawal with last drink yesterday. Will obtain routine labs and administer IV fluids, Ativan IV and Librium p.o. Probable discharge on Librium with follow-up with the rehab facility.. 17:10 ED course: Patient improved after Ativan. We will discharge him on Librium. Labs within sp3 normal limits.. 07/15 16:29 Order name: CBC with Diff; Complete Time: 16:57 sp3 07/15 16:29 Order name: CMP; Complete Time: 16:57 sp3 07/15 16:29 Order name: Lipase; Complete Time: 16:57 sp3 07/15 16:37 Order name: EKG; Complete Time: 16:37 sp3 07/15 16:29 Order name: IV Saline Lock; Complete Time: 16:32 sp3 07/15 16:29 Order name: Labs collected and sent; Complete Time: 16:52 sp3 07/15 16:29 Order name: Monitor; Complete Time: 16:32 sp3 07/15 16:29 Order name: Pulse Ox Monitoring; Complete Time: 16:32 sp3 07/15 16:37 Order name: EKG - Nurse/Tech; Complete Time: 16:51 sp3 Administered Medications: 16:51 Drug: Ativan IVP 1 mg IVP once Route: IVP; Site: right antecubital; iw 18:21 Follow up: Response: Marked relief of symptoms iw 16:51 Drug: Librium - chlordiazePOXIDE PO 50 mg PO once Route: PO; iw 18:21 Follow up: Response: No adverse reaction; Anxiety decreased iw 16:52 Drug: NS 0.9% IV 1000 ml IV at 1 bolus Per protocol; to be given as a bolus over 60 iw minutes Route: IV; Rate: 1 bolus; Site: right antecubital; 18:21 Follow up: IV Status: Completed infusion iw 17:14 Drug: Ativan IVP 1 mg IVP once Route: IVP; Site: right antecubital; iw 18:21 Follow up: Response: No adverse reaction; Anxiety decreased iw Disposition Summary: 07/15/24 17:56 Discharge Ordered Notes: Location: Home sp3 Condition: Stable sp3 Diagnosis - Alcohol withdrawal sp3 Followup: sp3 - With: Private Physician - When: Upon discharge from the Emergency Department - Reason: Continuance of care Discharge Instructions: - Discharge Summary Sheet sp3 - Alcohol Withdrawal Syndrome sp3 Forms: - Medication Reconciliation Form sp3 - Antibiotic Education sp3 - Prescription Opioid Use sp3 - Patient Portal Instructions sp3 - Leadership Thank You Letter sp3 Prescriptions: - chlordiazepoxide HCl 25 mg Oral capsule - take 3 capsule ORAL route every 4 hours for 4 doses as needed for agitation; sp3 until symptoms of withdrawal controlled or stopped; 20 capsule; Refills: 0, Product Selection Permitted Signatures: Dispatcher [employer] Sandy Greene RN RN iw Shruthi Crouch MD MD sp3 Lauryn Robert RN RN cm10
[2024-07-15 18:25] VITALS: TEMP 97.3
[2024-07-15 18:27] VITALS: O2SAT 100
[2024-07-15 18:28] VITALS: BP 114/82
--- NOTE | 2024-07-17 11:23 | EKG ---
Test Date: 2024-07-15 Test Time: 16:36:15 [place] [employer]: CE MEASUREMENT RESULTS: Intervals: Rate: 89 AL: 138 QRSD: 86 QT: 350 QTc: 425 [place]: P: 75 AL: 138 QRS: 63 T: 52 INTERPRETIVE STATEMENTS: Normal sinus rhythm Normal ECG Compared to ECG 12/19/2023 16:01:57 No significant changes Electronically Signed On 07-17-24 11:19:06 CDT by Huang Jay
== END 2024-07-15 18:21 | disposition home or self-care (01) ==
LOC: ER 15:46
DX: F10.239 Alcohol dependence with withdrawal, unspecified (principal)
CPT/HCPCS: 36415; 80053; 83690; 85025; 93005; 96361; 96374; 99284; J7030